=== PATIENT | female | born 1985 | race Caucasian/White ===

== ENCOUNTER 2024-01-05 09:10 | Emergency (ER) | payer BC, OTHER, SELFPAY ==
[2024-01-05 09:16] VITALS: BP 120/79; PULSE 95; RESP 16; TEMP 36.6; O2SAT 95; BMI 43.6
--- NOTE | 2024-01-05 09:32 | ED.GENADULT ---
HPI - General Adult General Date Seen: 01/05/24 Chief complaint: Chest Pain Stated complaint: Sharp pain on L side under ribs Time Seen by Provider: 01/05/24 09:15 Source: patient Mode of arrival: ambulatory Limitations: no limitations History of Present Illness HPI narrative: patient is a 38-year-old Female with no pertinent medical problems presenting to the emergency department for left upper quadrant abdominal pain. Symptoms started 2 days ago. She does not remember any heavy lifting or twisting or any other injuries. States the pain is worse with movement, deep breaths, laying on the left side. Whenever those occur she describes the pain as sharp in nature. Current be resting in the bed she states is more dull. She does states she has had pain in her left upper quadrant before as a child and was related to her gallbladder. She states she has not had much of an appetite but denies fevers, chills, shortness of breath, weakness, nausea /vomiting, diarrhea, constipation, lightheadedness, dizziness, weakness, numbness. She is not taking anything for pain in states she does not feel like she needs any pain medication at this time. No history of blood clots. No history of recent travel. Related Data Home Medications Medication Instructions Recorded Confirmed No Known Home Medications 01/05/24 01/05/24 Allergies Allergy/AdvReac Type Severity Reaction Status Date / Time No Known Drug Allergies Allergy Verified 01/05/24 10:56 Review of Systems Status of ROS: Reports: 10 or more systems reviewed and unremarkable except as noted in History and below [facility] Social History Smoking Status: Current some day smoker How often do you have a drink containing alcohol: monthly or less How often do you have six or more drinks on one occasion: Never AUDIT-C Alcohol total score: 1 Non-prescribed substance use: marijuana (any form) Exam Narrative: Exam Narrative: Const: Well-nourished, Well-developed, in mild distress Eyes: PERRL, no conjunctival injection, and symmetrical lids HENT: Atraumatic external nose and ears. Moist mucous membranes. Neck: Symmetric, trachea midline, No thyromegaly. CVS: RRR, No murmurs or gallops. Peripheral pulses 2+ and equal in all extremities RESP: Unlabored respiratory effort. Clear to auscultation bilaterally. GI: left upper quadrant point tenderness right below ribs,Nondistended, No rebound or guarding. MSK:Extremities w/o deformity, Normal Active ROM Skin: Warm, Dry. No rashes or lesions. Neuro: Normal Muscle tone, No focal neurological deficits. Psych: Awake, Alert, & Oriented x3. Appropriate mood and affect. Const: Vital Signs, click to edit/add: Vital Signs - 24 hr 01/05/24 09:16 01/05/24 10:01 01/05/24 10:31 Temperature 97.9 F Pulse Rate 87 85 Pulse Rate [Pulse Oximeter] 95 Respiratory Rate 16 14 12 Blood Pressure 108/73 111/70 Blood Pressure [Ri ght Upper Arm] 120/79 Pulse Oximetry 95 96 96 Oxygen Delivery Me thod Room Air Course Vital Signs Vital signs: Initial Vital Signs Temperature 97.9 F 01/05/24 09:16 Temperature Source Temporal Artery Scan 01/05/24 09:16 Pulse Rate 95 01/05/24 09:16 Respiratory Rate 16 01/05/24 09:16 Blood Pressure 120/79 01/05/24 09:16 Blood Pressure Mean 92 01/05/24 09:16 Pulse Oximetry 95 01/05/24 09:16 Oxygen Delivery Method Room Air 01/05/24 09:16 Vital Signs Temperature 97.9 F 01/05/24 09:16 Pulse Rate 95 01/05/24 09:16 Respiratory Rate 16 01/05/24 09:16 Blood Pressure 120/79 01/05/24 09:16 Pulse Oximetry 95 01/05/24 09:16 Oxygen Delivery Method Room Air 01/05/24 09:16 Temperature 97.9 F 01/05/24 09:16 Pulse Rate 85 01/05/24 10:31 Respiratory Rate 12 01/05/24 10:31 Blood Pressure 111/70 01/05/24 10:31 Pulse Oximetry 96 01/05/24 10:31 Oxygen Delivery Method Room Air 01/05/24 09:16 Medical Decision Making MDM Narrative Medical decision making narrative: Patient is a 38-year-old female presenting to the emergency department for left upper quadrant abdominal pain. She does have pain with deep breath there is some slight concern for a PE. She is on hormonal control and thus cannot be perced out. Symptoms could be related to the gallbladder but seemed unlikely due to location. Also check for pancreatitis. Seems unlikely being SBO but this will be seen on CT scan. He he spine like issues are also possibility. This seems most likely to be musculoskeletal in nature but while rule out other acute abnormalities before that. CBC, CMP, EKG, troponin, D-dimer, COVID/flu/ RSV, urinalysis , test all ordered. Patient's lab work all returned showing no concerning abnormalities. She refused a COVID/flu/RSV swab. D-dimer within normal limits and a PE is unlikely. EKG and troponin are within normal limits. CT scan of the abdomen and pelvis shows some compression of the the root of the celiac artery. She is not having chronic abdominal pain, weight loss, postprandial pain says not seem to be in acute issue that is causing her symptoms. It seems to be an incidental finding and I believe she only needs follow-up for it if she starts developing any of the prior mention symptoms. She does have cholelithiasis but again is having no postprandial pain in all the pain is on the left side that gets exacerbated with movement. This is unlikely to be causing her symptoms. Most likely she has has a muscle strain. She is otherwise doing well can be discharged home. She is agreeable to this plan. Lab Data Labs: Lab Results 01/05/24 01/05/24 Range/Units 09:40 09:45 WBC 8.44 (4.50-11.00) K/uL RBC 5.20 (4.00-5.20) m/uL Hgb 15.4 (12.0-16.0) gm/dL Hct 47.1 (33.0-51.0) % MCV 91 (80-100) fL MCH 30 (26-34) pg MCHC 33 (32-36) gm/dL RDW Coeff of Viri 12.9 (11.5-15.5) % Plt Count 253 (140-440) K/uL Neut % (Auto) 62.6 (42.0-72.0) % Lymph % (Auto) 25.5 (20-44) % Waller % (Auto) 9.0 (0.0-11.0) % Eos % (Auto) 2.5 (0.0-7.0) % Baso % (Auto) 0.2 (0.0-3.0) % Neut # (Auto) 5.28 (1.7-7.0) K/uL Lymph # (Auto) 2.15 (0.90-2.90) K/uL Waller # (Auto) 0.80 (0.00-0.90) K/UL Eos # (Auto) 0.21 (0.00-0.50) K/uL Baso # (Auto) 0.02 (0.00-0.30) K/uL Abs Immat Gran (auto) 0.02 (0.00-0.30) K/uL Imm/Tot Granulo (auto) 0.2 % D-Dimer Quant (PE/DVT) 0.36 (0.00-0.50) ug/ml Sodium 139 (135-149) mmol/L Potassium 3.8 (3.6-5.1) mmol/L Chloride 106 (96-114) mmol/L Carbon Dioxide 25 (20-32) mmol/L Anion Gap 8 (7-15) mEq/L BUN 13 (5-24) mg/dL Creatinine 1.0 (0.5-1.5) mg/dL Estimated Creat Clear 71.41 Estimated GFR 74 ml/min Glucose 85 (60-115) mg/dL Calcium 9.2 (8.4-10.6) mg/dL Total Bilirubin 0.8 (0.1-1.5) mg/dL AST 28 (12-35) U/L ALT 22 (4-35) U/L Alkaline Phosphatase 62 (40-150) U/L Total Protein 7.7 (6.0-8.3) g/dL Albumin 4.8 (3.3-5.0) g/dL Lipase 55 (23-300) U/L Urine Color Yellow (Yellow) Urine Appearance Clear (Clear) Urine pH 6.0 (5.0-8.5) Ur Specific [place] 1.020 (1.000-1.030) Urine Protein Negative (Negative) Urine Glucose (UA) Negative (Negative) Urine Ketones Trace A (Negative) Urine Blood Trace-intact A (Negative) Urine Nitrite Negative (Negative) Urine Bilirubin Negative (Negative) Urine Urobilinogen 0.2 (0.2-1.0) Ur Leukocyte Esterase Negative (Negative) Urine RBC 2-5 A (0-2) Urine WBC 2-5 (0-5) Ur Squamous Epith Cells Few (None-Few) Urine Bacteria Few A (None) Urine HCG, Qual Negative (Negative) SARS-CoV-2 (PCR) Cancelled Influenza Type A (PCR) Cancelled Influenza Type B (PCR) Cancelled RSV (PCR) Cancelled POC Troponin I 0.00 L (0.01-0.04) ng/ml Imaging Data CT scan abdomen pelvis: Radiologist's impression: 1. No acute abnormality identified to explain the patient`s left upper quadrant abdominal pain. 2. 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 3. Cholelithiasis. Please note that all CT scans at this facility use dose modulation, iterative reconstruction, and/or weight-based dosing when appropriate to reduce radiation dose to as low as reasonably achievable. Dictated by Alaina Khoury MD @ 01/05/2024 11:12:19 AM ECG Data Attestation: I personally reviewed and interpreted this ECG as follows: Interpretation: Normal sinus rhythm with a rate of 86 beats per minute, normal intervals, normal axis, no ST or T-wave abnormalities Discharge Plan Discharge Clinical Impression: Abdominal pain Qualifiers: Abdominal location: left upper quadrant Qualified Code(s): R10.12 - Left upper quadrant pain Patient Disposition: Home, Self-Care Condition: Stable Instructions: Muscle Strain (DC) Additional Instructions: Symptoms seem most likely related to a muscle strain of the left abdominal wall. CT scan does show gallstones but this pain but usually occur after eating and be on the right side of your abdomen. CT scan also showed what appears to be some narrowing at the base of the celiac artery. This is 1 of the main arteries in your abdomen but this does not need to be addressed or further worked up unless he start developing pain after eating, chronic abdominal pain, and unexpected weight loss. If you do start developing any of these symptoms I recommend following up with your primary care provider about your CT finding Prescriptions: No Action No Known Home Medications Follow Up/Referrals: Provider,Not a Local [Primary Care Provider] - Stand Alone Forms: MyHealth Info Instructions
[2024-01-05 09:51] LABS: Appearance Urine Clear (Clear); Bilirubin Urine Negative (Negative); Blood Urine Trace-intact (Negative); Color Urine Yellow (Yellow); Glucose Urine Negative (Negative); Ketones Urine Trace (Negative); Leukocyte Esterase Urine Negative (Negative); Nitrite Urine Negative (Negative); Protein Urine Negative (Negative); Urobilinogen Urine 0.2 (0.2-1.0)
[2024-01-05 09:54] LABS: Ur HCG Qualitative* Negative (Negative)
[2024-01-05 09:58] LABS: Basophils Absolute Auto 0.02 K/uL (0.00-0.30); Basophils Percent Auto 0.2 % (0.0-3.0); Eosinophils Absolute Auto 0.21 K/uL (0.00-0.50); Eosinophils Percent Auto 2.5 % (0.0-7.0); Hematocrit 47.1 % (33.0-51.0); Hemoglobin* 15.4 gm/dL (12.0-16.0); Immature Granulocytes Abs Auto 0.02 K/uL (0.00-0.30); Immature Granulocytes Pct Auto 0.2 %; Lymphocytes Absolute Auto 2.15 K/uL (0.90-2.90); Lymphocytes Percent Auto 25.5 % (20-44); Mean Corpuscular HGB Conc 33 gm/dL (32-36); Mean Corpuscular Hemoglobin 30 pg (26-34); Mean Corpuscular Volume 91 fL (80-100); Neutrophils Absolute Auto 5.28 K/uL (1.7-7.0); Neutrophils Percent Auto 62.6 % (42.0-72.0); Platelet Count* 253 K/uL (140-440); RDW Coefficient of Variation % 12.9 % (11.5-15.5); White Blood Count* 8.44 K/uL (4.50-11.00)
[2024-01-05 10:00] LABS: Slide Review Reflex No
[2024-01-05 10:01] VITALS: BP 108/73; PULSE 87; RESP 14; O2SAT 96
[2024-01-05 10:14] LABS: D Dimer Quantitative* 0.36 ug/ml (0.00-0.50)
--- NOTE | 2024-01-05 10:17 | CRLHL7_ITS ---
For Patients: As a result of the Century Cures Act, medical imaging exams and procedure reports are released immediately into your electronic medical record. You may view this report before your referring provider. If you have questions, please contact your health care provider. INDICATION: Two days of left upper quadrant abdominal pain. No trauma.. TECHNIQUE: CT abdomen and pelvis acquired with 133 cc Isovue 370 IV contrast. COMPARISON: None available.. FINDINGS: Lower chest: Unremarkable. Liver: Unremarkable. Normal in size and attenuation. No suspicious masses. Gallbladder and bile ducts: Multiple gallstones within the gallbladder. No pericholecystic inflammatory change. No biliary ductal dilation. Pancreas: Unremarkable. No mass or inflammation. Spleen: Unremarkable. Normal in size. No masses. Adrenal glands: Unremarkable. No nodules. Kidneys: Symmetric renal enhancement. No hydronephrosis. No obstructing renal or ureteral calculi. GI tract: Unremarkable. Normal in caliber. No sign of mass or inflammation. Normal appendix. Vasculature: Abdominal aorta is normal in caliber. 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 Remaining mesenteric vessels are unremarkable. Lymph nodes: No lymphadenopathy. Peritoneum/Abdominal Wall: Unremarkable. No sign of mass or infiltration. No free air or significant free fluid. Pelvis: IUD within the uterus. Decompressed bladder. 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 Mild degenerative disc disease in the lower thoracic spine. IMPRESSION: 1. No acute abnormality identified to explain the patient`s left upper quadrant abdominal pain. 2. 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 3. Cholelithiasis. Please note that all CT scans at this facility use dose modulation, iterative reconstruction, and/or weight-based dosing when appropriate to reduce radiation dose to as low as reasonably achievable. Dictated by Alaina Khoury MD @ 01/05/2024 11:12:19 AM (Electronically Signed)
[2024-01-05 10:18] LABS: Bacteria Urine Few; Squamous Epithelial Cell Urine Few (None-Few)
[2024-01-05 10:31] VITALS: BP 111/70; PULSE 85; RESP 12; O2SAT 96
[2024-01-05 11:01] VITALS: BP 121/81; PULSE 80; RESP 14; O2SAT 98
[2024-01-05 11:31] VITALS: BP 123/77; PULSE 77; RESP 12; O2SAT 98
[2024-01-05 11:31] LABS: Alkaline Phosphatase* 62 U/L (40-150); Aspartate Amino Transferase* 28 U/L (12-35); Bilirubin Total* 0.8 mg/dL (0.1-1.5); Blood Urea Nitrogen* 13 mg/dL (5-24); Carbon Dioxide* 25 mmol/L (20-32); Est. Creatinine Clearance* 71.41; Estimated Glomerular Filt Rate 74 ml/min; Potassium* 3.8 mmol/L (3.6-5.1); Sodium* 139 mmol/L (135-149); Total Protein* 7.7 g/dL (6.0-8.3)
[2024-01-05 11:32] LABS: Alanine Aminotransferase* 22 U/L (4-35); Albumin* 4.8 g/dL (3.3-5.0); Calcium* 9.2 mg/dL (8.4-10.6); Chloride* 106 mmol/L (96-114); Glucose* 85 mg/dL (60-115); Lipase* 55 U/L (23-300)
[2024-01-05 11:33] LABS: Anion Gap 8 mEq/L (7-15)
[2024-01-05 12:02] VITALS: BP 120/79; PULSE 95; RESP 12; TEMP 36.6
== END 2024-01-05 12:03 | disposition home or self-care (01) ==
PROVIDERS: Emergency Provider Student in an Organized Health Care Education/Training Program
DX: R10.12 Left upper quadrant pain (principal)
CPT/HCPCS: 36415; 74177; 80053; 81001; 81025; 83690; 84484; 85025; 85379; 87086; 87631; 93005; 99283; 99284; 99285; Q9967